=== PATIENT | female | born 1955 | race Caucasian/White ===

== ENCOUNTER 2018-02-28 20:23 | Outpatient (REF) | payer SELFPAY | END 2018-02-28 20:43 | LOC: NCHCN 20:23 | PROVIDERS: PCP Registered Nurse; Visit Provider Registered Nurse | DX: R39.9 Unspecified symptoms and signs involving the genitourinary system (principal) | CPT/HCPCS: 87086 ==

== ENCOUNTER 2018-06-06 21:47 | Outpatient (REF) | payer SELFPAY | END 2018-06-06 22:07 | LOC: NCHCN 21:47 | PROVIDERS: PCP Registered Nurse; Visit Provider Registered Nurse | DX: R35.0 Frequency of micturition (principal) | CPT/HCPCS: 87077; 87086 ==

== ENCOUNTER 2018-07-14 13:32 | Outpatient (REF) | payer SELFPAY ==
[2018-07-14 21:28] LABS: Anion Gap 8.1 mmol/L (3-11); BUN 12 mg/dL (7-18); CO2 34.9 mmol/L (21.0-32.0); CREATININE 0.87 mg/dL (0.55-1.02); Calcium 9.6 mg/dL (8.5-10.1); Chloride 95 mmol/L (98-107); Glucose 104 mg/dL (70-100); Sodium 138 mmol/L (136-145)
[2018-07-14 21:51] LABS: Potassium 2.9 mmol/L (3.5-5.1)
== END 2018-07-14 13:52 ==
LOC: NCHCN 13:32
PROVIDERS: PCP Registered Nurse; Visit Provider Registered Nurse
DX: I10 Essential (primary) hypertension (principal)
CPT/HCPCS: 80048

== ENCOUNTER 2018-07-18 10:52 | Outpatient (REF) | payer SELFPAY ==
[2018-07-18 21:05] LABS: Magnesium 1.8 mg/dL (1.8-2.4)
== END 2018-07-18 11:12 ==
LOC: NCHCN 10:52
PROVIDERS: PCP Registered Nurse; Visit Provider Registered Nurse
DX: E87.6 Hypokalemia (principal); I49.9 Cardiac arrhythmia, unspecified; M79.651 Pain in right thigh
CPT/HCPCS: 83735; 84132

== ENCOUNTER 2019-06-15 09:50 | Outpatient (REF) | payer SELFPAY ==
[2019-06-15 22:28] LABS: Abs Immature Grans 0.03 k/cumm (0.0-0.09); Absolute Basophil Count 0.05 k/cumm (0.0-0.2); Absolute Eosinophil Count 0.14 k/cumm (0.0-0.7); Absolute Lymphocyte Count 1.82 k/cumm (1.2-3.4); Absolute Monocyte Count 0.64 k/cumm (0.11-0.7); Absolute Neutrophil Count 6.67 k/cumm (1.2-6.7); Basophils % 0.5; Eosinophils % 1.5; HGB 11.9 g/dL (12.0-15.5); Immature Grans % 0.3 %; Lymphocytes % 19.5; Mean Corp. HGB Concentration 31.3 g/dL (32.0-36.0); Mean Corpuscular Hemoglobin 28.8 pg (27.0-33.0); Mean Platelet Volume 9.7 fL (8.0-11.0); Monocytes % 6.8; Neutrophils % 71.4; Platelet Count 354 x1000/uL (130-400); RBC 4.13 m/cumm (4.00-5.20); RBC Distribution Width 13.7 % (11.7-14.6); White Blood Cell Count 9.35 k/cumm (4.4-10.8)
[2019-06-15 22:36] LABS: Anion Gap 10.1 mmol/L (3-11); BUN 16 mg/dL (7-18); CO2 29.9 mmol/L (21.0-32.0); CREATININE 0.84 mg/dL (0.55-1.02); Calcium 9.7 mg/dL (8.5-10.1); Chloride 102 mmol/L (98-107); Glucose 94 mg/dL (74-106); Potassium 3.9 mmol/L (3.5-5.1); Sodium 142 mmol/L (136-145)
== END 2019-06-15 10:10 ==
LOC: NCHCN 09:50
PROVIDERS: PCP Registered Nurse; Visit Provider Registered Nurse
DX: D64.9 Anemia, unspecified (principal); Z86.39 Personal history of other endocrine, nutritional and metabolic disease
CPT/HCPCS: 80048; 85025

== ENCOUNTER 2019-06-26 09:52 | Outpatient (REF) | payer SELFPAY ==
[2019-06-26 20:25] LABS: Potassium 3.8 mmol/L (3.5-5.1)
== END 2019-06-26 10:12 ==
LOC: NCHCN 09:52
PROVIDERS: PCP Registered Nurse; Visit Provider Registered Nurse
DX: E87.6 Hypokalemia (principal)
CPT/HCPCS: 84132

== ENCOUNTER 2019-11-30 12:24 | Outpatient (REF) | payer SELFPAY ==
[2019-11-30 21:22] LABS: Anion Gap 8.2 mmol/L (3-11); BUN 14 mg/dL (7-18); CO2 28.8 mmol/L (21.0-32.0); CREATININE 0.94 mg/dL (0.55-1.02); Calcium 9.8 mg/dL (8.5-10.1); Chloride 103 mmol/L (98-107); Estimated GFR 59.95 (mL/min/1.73m2); Glucose 100 mg/dL (74-106); Potassium 4.1 mmol/L (3.5-5.1); Sodium 140 mmol/L (136-145)
== END 2019-11-30 12:44 ==
LOC: NCHCN 12:24
PROVIDERS: PCP Registered Nurse; Visit Provider Nurse Practitioner Community Health
DX: I10 Essential (primary) hypertension (principal); R25.2 Cramp and spasm
CPT/HCPCS: 80048

== ENCOUNTER 2020-01-06 21:27 | Outpatient (REF) | payer SELFPAY ==
[2020-01-06 20:42] LABS: Anion Gap 9.6 mmol/L (3-11); BUN 15 mg/dL (7-18); CO2 28.4 mmol/L (21.0-32.0); CREATININE 0.81 mg/dL (0.55-1.02); Calcium 9.3 mg/dL (8.5-10.1); Chloride 101 mmol/L (98-107); Glucose 88 mg/dL (74-106); Potassium 4.2 mmol/L (3.5-5.1); Sodium 139 mmol/L (136-145)
== END 2020-01-06 21:47 ==
LOC: NCHCN 21:27
PROVIDERS: PCP Registered Nurse; Visit Provider Registered Nurse
DX: I10 Essential (primary) hypertension (principal)
CPT/HCPCS: 80048

== ENCOUNTER 2021-05-03 10:20 | Outpatient (REF) | payer MEDICARE, SELFPAY ==
--- NOTE | 2021-05-03 09:40 | PAPFT_PTH ---
PATIENT: Sherrie Dow LOC: [facility]#:[id number] AGE/SX: 66/F ROOM: RE05/03/[address]: Beti Fleming : 1955 BED: DIS: 05/03/2021 SPEC #: [id number] RECD: 05/04/21 12:36 STATUS: LUCILLE REQ #: [id number] SAURABH: 05/03/21 09:[address]: Beti Fleming DEPT: [facility] Cytology RECD BY: Jewels Etienne Tissues: 1 - CX/ENDOCX FOR PAP SMEARS Procedures: PAP THIN PREP/[facility] Screening HPV DNA PROBE Comments: [id number]
--- OUTSIDE RECORDS SUMMARY | 2021-05-03 10:30 | XMS_ITS | CCD ---
:1955 Author Care Team Providers Name Role Phone LABJORDI, Samina Attending Physician Unavailable Vital Signs Unknown or Not Available. Allergies Allergy Code Allergy Type Reaction Status CODEINE 2670 Drug allergy Nausea, Vomiting Active UNKNOWN ALLERGY CODE 0 Propensity to adverse Nausea, Vom iting; Active - PERCO - reactions Nausea IBUPROFEN 5640 Drug allergy Nausea, Vomiting; Active Nausea Procedures Unknown or Not Available. History of Immunizations Unknown or Not Available. Problems Unknown or Not Available. Results Unknown or Not Available. Active Medications Medication Code Dose Units Frequency Route Modification Start Date/Time Multivitamin 6891221 1 TABLET DAILY ORAL 07/16/2018 Oral Tablet 15:13 Prescription Detail TAKE 1 TABLET ORAL DAILY Medications Administered During Visit Unknown or Not Available. Encounters Encounter Diagnosis Diagnosis Code Start Date Encounter for antineoplastic immunotherapy [id number] 04/06/2021 Social History Smoking Status Code Start Date End Date Never smoker [id number] Patient Decision Aids Unknown or Not Available. Discharge Instructions You were admitted to [facility] on 04/06/2021 07:55 with a principal diagnosis of Encounter for antineoplasti c immunotherapy You were discharged from [facility] on 04/06/2021 07:55 Should you have any questions prior to d ischarge, please contact a member of your healthcare team. If you have left the spital and have any questions, please contact your primary care physician. Chief Complaint and Reason For Visit Unknown or Not Available. Function Status Unknown or Not Available. Plan of Care Unknown or Not Available. Referral/Transition of Care Unknown or Not Available.
--- OUTSIDE RECORDS SUMMARY | 2021-05-03 10:31 | XMS_ITS | CCD ---
:1955 Author Care Team Providers Name Role Phone MD ERASMO Attending Physician Unavailable Vital Signs Unknown or [...] Units Frequency Route Modification Start Date/Time Multivitamin 4156878 1 TABLET DAILY ORAL 07/16/2018 Oral Tablet 15:13 Prescription Detail TAKE 1 TABLET ORAL DAILY Medications Administered During Visit Unknown or Not Available. 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 Discharge Instructions You were admitted to [facility] on 01/31/2021 19:00 with a principal diagnosis of Malignant neoplasm of later al wall of bladder You were discharged from [facility] on 01/31/2021 19:00 Should you have any questions prior to d ischarge, please contact a member of your healthcare team. If you have left the ho spital and have any questions, please contact your primary care physician. Chief Complaint and Reason For Visit Unknown or Not Available. Function Status Unknown or Not Available. Plan of Care Unknown or Not Available. Referral/Transition of Care Unknown or Not Available.
--- OUTSIDE RECORDS SUMMARY | 2021-05-03 10:31 | XMS_ITS | CCD ---
[...] Units Frequency Route Modification Start Date/Time Multivitamin 0803052 1 TABLET DAILY ORAL 07/16/2018 Oral Tablet 15:13 Prescription Detail TAKE 1 TABLET ORAL DAILY Medications Administered During Visit Unknown or Not Available. Encounters Encounter Diagnosis Diagnosis Code Start Date Encounter for antineoplastic immunotherapy [id number] 04/20/2021 Social History Smoking Status Code Start Date End Date Never smoker [id number] Patient Decision Aids Unknown or Not Available. Discharge Instructions You were admitted to [facility] on 04/20/2021 07:54 with a principal diagnosis of Encounter for antineoplasti c immunotherapy You were discharged from [facility] on 04/20/2021 07:54 Should you have any questions prior to [...]
[2021-05-03 22:16] LABS: BUN 15 mg/dL (7-18); CREATININE 0.8 mg/dL (0.55-1.02); Calcium 9.5 mg/dL (8.5-10.1); Calculated LDL 151 mg/dL (<100); Chloride 98 mmol/L (98-107); Cholesterol 229 mg/dL (<200); Glucose 86 mg/dL (74-106); HDL Cholesterol 55 mg/dL (40-60); Potassium 3.9 mmol/L (3.5-5.1); Sodium 137 mmol/L (136-145); Triglyceride 117 mg/dL (<150)
[2021-05-03 22:23] LABS: Hemoglobin A1C 5.5 % (<5.7)
== END 2021-05-03 10:21 | disposition home or self-care (01) ==
LOC: NCHCN 10:20
PROVIDERS: PCP Registered Nurse; Visit Provider Registered Nurse
DX: I10 Essential (primary) hypertension (principal); Z00.00 Encounter for general adult medical examination without abnormal findings; Z12.4 Encounter for screening for malignant neoplasm of cervix; Z11.51 Encounter for screening for human papillomavirus (HPV); Z01.419 Encounter for gynecological examination (general) (routine) without abnormal findings
CPT/HCPCS: 80048; 80061; 88142; 83036; 87624